=== PATIENT | female | born 1955 ===

== ENCOUNTER 2017-12-12 21:37 | Observation (INO) | payer BC ==
[2017-12-12 23:25] LABS: Troponin I Less than 0.010 ng/mL (< 0.028)
[2017-12-13 02:35] LABS: Troponin I Less than 0.010 ng/mL (< 0.028)
[2017-12-13] MEDS ORDERED: Ondansetron HCl/PF 4 MG/2 ML Vial IVP PRN (02:37)
[2017-12-13] MEDS ORDERED: Acetaminophen 325 MG TAB PO PRN (02:37)
[2017-12-13] MEDS ORDERED: Ondansetron ODT 4 MG TAB SL PRN (02:37)
[2017-12-13 03:24] VITALS: BMI 20.7
[2017-12-13 05:51] LABS: Troponin I Less than 0.010 ng/mL (< 0.028)
[2017-12-13] MEDS ORDERED: Nitroglycerin 2% Ointment 1 INCH/1 GM Packet TOP SCH (06:00)
[2017-12-13] MEDS ORDERED: Nitroglycerin 0.4 MG TAB (25 Tab Bottle) SL PRN (08:54)
[2017-12-13] MEDS ORDERED: COLESEVELAM 625 MG PO SCH (09:00)
[2017-12-13] MEDS ORDERED: Aspirin 325 mg Enteric Coated Tablet PO SCH (09:00)
[2017-12-13] MEDS ORDERED: Milk Of Magnesia 30 ML UDCUP PO PRN (09:05)
[2017-12-13] MEDS: Anastrozole 1 MG TAB PO SCH (09:49)
[2017-12-13] MEDS: Carvedilol 6.25 MG TAB PO SCH ×2 (09:49→20:15)
[2017-12-13] MEDS: Aspirin 81 mg Enteric Coated Tablet PO SCH (09:49)
[2017-12-13] MEDS: Isosorbide Mononitrate 20 MG TAB PO SCH (09:49)
[2017-12-13] MEDS: Furosemide 20 MG TAB PO SCH ×2 (09:49→20:16)
[2017-12-13] MEDS: Enoxaparin Sodium 40 MG/0.4 ML SYRINGE SC SCH (09:50)
[2017-12-13] MEDS: Prasugrel 10 MG TAB PO SCH (11:41)
--- NOTE | 2017-12-13 11:53 | HP ---
PRIMARY CARE PHYSICIAN: Claire Gutierrez M.D. PRESENTING COMPLAINT: Chest pain. HISTORY OF PRESENT ILLNESS: Ms. Alma Molina is a 62-year-old female with a past medical history of CAD, status post stent and ICD in 2006, PUD, and breast cancer status post mastectomy and lumpectomy and just finished chemotherapy in September, had radiation therapy about 2 weeks ago. She reports chest pain, which started around 5:00 p.m. yesterday, described it as crushing pressure-like pain which was retrosternal, transiently relieved by nitroglycerin spray, which he ended up using 4 times, therefore she came to the emergency room and increased by taking deep breaths. It was associated with shortness of breath and palpitations. She has no history of PND, orthopnea, lower extremity edema. She has not had previous episodes in the past. At the emergency room, she was given more nitro paste, which relieved the pain. The patient has not had any recent travel and her svp programmatic tv is Dr. Chanel. She has no urinary symptoms. There is no history of cough, fever or sputum production. Of note, pain radiated to the neck and also to her jaw. PAST MEDICAL HISTORY: As stated in the HPI. PAST SURGICAL HISTORY: Mastectomy and lumpectomy. FAMILY HISTORY: Her dad from a myocardial infarction at 56. SOCIAL HISTORY: She smokes half full pack of cigarettes per day, but denies illicit drug use or alcohol. ALLERGIES: PERCOCET, CHANTIX, AMPICILLIN. HOME MEDICATIONS: Reviewed on in the chart. REVIEW OF SYSTEMS: All systems reviewed and negative except as stated in HPI. PHYSICAL EXAMINATION: VITAL SIGNS: Blood pressure 128/83, temperature 98.9 degree Fahrenheit, heart rate 95, respiratory rate 18, oxygen saturation 92% on room air. GENERAL: Not in acute distress. She is sitting comfortably in bed and looks comfortable. HEENT: Normocephalic, atraumatic, not pale, anicteric. Moist mucous membranes , PERRLA. NECK: Supple. No JVD. Full range of movement. CARDIOVASCULAR: S1, S2 only. Regular rate and rhythm. No murmurs, rubs or gallops. RESPIRATORY: Vesicular breath sounds bilaterally. No wheezes, rales or rhonchi. ABDOMEN: Soft, nontender, nondistended. Bowel sounds normoactive. NEUROLOGIC: Alert and well oriented. No focal deficit. SKIN: Warm, dry, well-perfused. No rashes or lesions. PSYCHIATRIC: Normal mood and affect. IMAGING: EKG showed normal sinus rhythm but no signs of acute ischemia. Troponin trended and negative. ASSESSMENT: 62-year-old female with a history of coronary artery disease and status post stent, on multiple medications for chest pain, presenting with unstable angina. She has been admitted to telemetry floor for further observation until reviewed by Cardiology. PLAN: 1. Monitor on tele. 2. Sublingual nitroglycerin p.r.n. for chest pain. 3. Trend troponins. 4. Obtain Cardiology consult. 5. The patient may require any stress test due to her extensive history, we will defer to Cardiology decide on whether she needs a stress test or a stat catheterization. Pain could be related also to her recent radiation therapy. 5. We will also continue patient on her home medications of aspirin, atorvastatin, carvedilol, furosemide, amiodarone. She is also on Prasugrel. We will hold losartan for now due to her borderline blood pressures. Also, we will consider holding discharge and depending on her response. 6. Obtain a D-Dimer and proceed with CTA chest to r/o PE if Dimer positive. Deep venous thrombosis prophylaxis with subcutaneous heparin. CODE STATUS: FULL CODE. MTDD
[2017-12-13 12:10] LABS: #Basophils 0.1 thou/uL (0.0-0.2); #Lymphocytes 0.3 thou/uL (1.20-3.40); #Monocytes 1.1 thou/uL (0.11-0.59); #Neutrophils 10.8 thou/uL (1.40-6.50); %Eosinophils 0.1 % (0.0-10.0); %Lymphocytes 2.5 % (21.0-51.0); %Monocytes 8.5 % (0.0-10.0); %Neutrophils 87.8 % (42.0-75.0); Hemoglobin 13.4 g/dL (12.0-16.0); Mean Corpuscular HGB CONC 34.8 g/dL (32.0-36.0); Mean Corpuscular Hemoglobin 33.2 pg (27.0-31.0); Mean Corpuscular Volume 95.4 fL (78.0-98.0); Mean Platelet Volume 6.8 fL (7.4-10.4); Platelet Count 182 thou/uL (130-400); RBC Distribution Width 11.4 % (11.5-14.5); Red Blood Cell (RBC) Count 4.04 mill/uL (4.20-5.40); White Blood Cell (WBC) Count 12.4 thou/uL (4.8-10.8)
[2017-12-13 12:30] LABS: ALT (SGPT) 13 U/L (8-55); AST (SGOT) 14 U/L (5-34); Alkaline Phosphatase 86 U/L (40-150); Anion Gap 14 mmol/L (10-20); BUN (Urea Nitrogen) 17 mg/dL (9.8-20.1); Bilirubin, Total 0.4 mg/dL (0.2-1.2); Calc. Creatinine Clearance 51 mL/min (70-130); Calcium 9.4 mg/dL (7.8-10.44); Carbon Dioxide 23 mmol/L (23-31); Chloride 103 mmol/L (98-107); Estimated GFR-MDRD 67; Globulin 2.7 g/dL (2.4-3.5); Glucose 220 mg/dL (80-115); Potassium 3.6 mmol/L (3.5-5.1); Protein, Total 6.7 g/dL (6.0-8.3); Sodium 136 mmol/L (136-145)
[2017-12-13] MEDS: Spironolactone 25 MG TAB PO SCH (14:01)
[2017-12-13] MEDS ORDERED: ISOVUE-370 76%-LOCM 1 ML ONE (14:25)
--- NOTE | 2017-12-13 15:00 | CT ---
CT ANGIO CHEST WITH CONTRAST: Date: 12/13/17 Multiple axial tomograms obtained through chest following pulmonary angio protocol with multiplanar r econstruction and 3D postprocessing. INDICATION: Chest pain. History of breast cancer, currently on chemo. FINDINGS: Pulmonary arteries show adequate opacification. No evidence of pulmonary embolus identified. The lung marquez show chronic changes, including some stranding and atelectasis in the lung bases. The re are pleural based calcified nodules in the left lung base. These nodular densities measure up to 6 .0 mm. There is a noncalcified nodule in the left lower lobe adjacent to the fissure measuring 6-7 mm. No ev idence of focal infiltrate or effusion. Mediastinum shows no evidence of adenopathy. There are calcif ied left hilar lymph nodes consistent with prior granulomatous process. Thoracic aorta is unremarkabl e with no evidence of dissection. Images through upper abdomen are unremarkable. IMPRESSION: 1. No evidence of pulmonary embolus. 2. There are chronic lung changes, including pleural based calcified nodules in the left lung base. 3. A noncalcified nodule in the left lower lobe adjacent to the fissure. Follow-up is recommended wi th repeat CT scan in 6 months. 4. Calcified mediastinal and left hilar lymph nodes. 5. No acute lung process. POS: TYESHA
[2017-12-13] MEDS ORDERED: Albuterol Sulfate 2.5 mg/3 ml Neb NEB PRN (15:45)
[2017-12-13] MEDS: Docusate 100 MG CAP PO SCH (20:14)
[2017-12-13] MEDS ORDERED: Atorvastatin Calcium 40 MG TAB PO SCH (21:00)
[2017-12-14 04:46] LABS: #Lymphocytes 0.9 thou/uL (1.20-3.40); #Monocytes 1.1 thou/uL (0.11-0.59); #Neutrophils 7.3 thou/uL (1.40-6.50); %Basophils 0.1 % (0.0-1.0); %Eosinophils 0.5 % (0.0-10.0); %Lymphocytes 9.8 % (21.0-51.0); %Monocytes 11.6 % (0.0-10.0); Hemoglobin 12.8 g/dL (12.0-16.0); Mean Corpuscular HGB CONC 33.7 g/dL (32.0-36.0); Mean Corpuscular Hemoglobin 32.3 pg (27.0-31.0); Mean Corpuscular Volume 95.8 fL (78.0-98.0); Mean Platelet Volume 6.8 fL (7.4-10.4); Platelet Count 170 thou/uL (130-400); RBC Distribution Width 11.5 % (11.5-14.5); Red Blood Cell (RBC) Count 3.96 mill/uL (4.20-5.40); White Blood Cell (WBC) Count 9.4 thou/uL (4.8-10.8)
[2017-12-14 05:00] LABS: Anion Gap 12 mmol/L (10-20); BUN (Urea Nitrogen) 16 mg/dL (9.8-20.1); Calc. Creatinine Clearance 59 mL/min (70-130); Calcium 9.3 mg/dL (7.8-10.44); Carbon Dioxide 24 mmol/L (23-31); Chloride 106 mmol/L (98-107); Estimated GFR-MDRD 80; Glucose 116 mg/dL (80-115); Potassium 3.8 mmol/L (3.5-5.1); Sodium 138 mmol/L (136-145)
[2017-12-14] MEDS ORDERED: Acetaminophen 325 MG TAB PO PRN (08:42)
[2017-12-14] MEDS: Aspirin 81 mg Enteric Coated Tablet PO SCH (08:57)
[2017-12-14] MEDS: Docusate 100 MG CAP PO SCH (08:57)
[2017-12-14] MEDS: Furosemide 20 MG TAB PO SCH ×2 (08:57→16:49)
[2017-12-14] MEDS: Prasugrel 10 MG TAB PO SCH (08:57)
[2017-12-14] MEDS: Anastrozole 1 MG TAB PO SCH (08:58)
[2017-12-14] MEDS: Enoxaparin Sodium 40 MG/0.4 ML SYRINGE SC SCH (08:58)
[2017-12-14] MEDS ORDERED: Calcium Citrate 950 MG TAB PO SCH (09:00)
[2017-12-14] MEDS ORDERED: Fish Oil 1,000 MG CAP PO SCH (09:00)
[2017-12-14] MEDS ORDERED: Cholecalciferol (Vitamin D3) 400 UNITS TAB PO SCH (09:00)
[2017-12-14] MEDS ORDERED: BIOTIN PO SCH (09:00)
[2017-12-14] MEDS: Carvedilol 6.25 MG TAB PO SCH (10:43)
[2017-12-14] MEDS: Isosorbide Mononitrate 20 MG TAB PO SCH (10:43)
[2017-12-14] MEDS ORDERED: ADENOSINE 60 MG/20 ML VIAL ONE (14:01)
--- NOTE | 2017-12-14 16:36 | CON ---
DATE OF CONSULTATION: 12/14/2017 HISTORY: Alma Molina is a 62-year-old white female, who has had stent placement in the right coronary artery and ultimately a stent placed in the mid left anterior descending. In 2007, she had an anterior myocardial infarction. Her Plavix had been discontinued at that time due to gastrointestinal bleeding. On ultrasound there was found to be no evidence of restenosis and it was felt that this probably was due to coronary artery spasm with the distal vessel looking small. In 2009, she again underwent catheterization with no significant obstruction. Again in 11/2011, she underwent cardiac catheterization. There was 20% to 25% right coronary artery lesion. The mid LAD stent had a 30% in-stent restenosis and FFR of 0.92. Ejection fraction at that time was 35% with distal anterior and apical akinesis. She has continued to be followed in the office most recently seen on 11/2017. She had no chest discomfort. She has been undergoing chemotherapy and radiation therapy for breast CA. In October when she did stop diltiazem, she seemed to have recurrence of chest pain and this was resumed. She also has had placement of a biventricular ICD. On 12/12, she began to have chest pressure approximately 5:00 p.m. This continued unrelenting. She took multiple nitroglycerins at home without improvement and the pain was definitely pleuritic in nature which is different than her usual heart pain. She went to the emergency room in [place] and then was transferred here. She received multiple doses of IV morphine and fentanyl and after approximately 12 hours the pain resolved. During the time course, she did not notice any positional effects on her chest pain. However, it was definitely pleuritic in nature. Despite 12 hours of continual chest pain, her cardiac enzymes were normal. PAST MEDICAL HISTORY: Coronary artery disease as noted above, ischemic cardiomyopathy with ICD placement, hypertension, hypercholesterolemia. MEDICATIONS: At home include Arimidex 1 mg daily, aspirin 81 daily, atorvastatin 40 q.p.m., Biotin 1 capsule daily, calcium citrate 1000 mg daily, carvedilol 6.25 b.i.d., diltiazem 120 q.p.m., vitamin D3, Welchol two tablets b.i.d., fish oil 1000 mg daily, furosemide 20 b.i.d., isosorbide mononitrate 30 daily, Claritin-D 5 mg p.r.n., losartan 25 q.p.m., pantoprazole 40 daily, Effient 5 mg daily, Ranexa 500 mg alternating with one tablet with one half every other day, spironolactone 25 mg daily, vitamin B complex. ALLERGIES: CHANTIX, OXYCODONE and AMPICILLIN. OPERATIONS: ICD placement, stent placement, mastectomy, and lumpectomy. SOCIAL HISTORY: Continues to smoke one half pack per day. She does not drink. FAMILY HISTORY: Father had a myocardial infarction at age 56 and with that. PHYSICAL EXAMINATION: VITAL SIGNS: Blood pressure 101/51, pulse of 89. HEENT: PERRL. NECK: Supple. CHEST: Clear. CARDIAC: S1 and S2 normal, without any S3, S4 or murmurs. There is no rub. ABDOMEN: Normal bowel sounds, without tenderness, organomegaly. EXTREMITIES: Revealed no clubbing, cyanosis or edema. NEUROLOGIC: Grossly intact. SKIN: Warm and dry. LABORATORY DATA: EKG revealed normal sinus rhythm with low voltage, evidence for inferior and anteroseptal myocardial infarction. Hemoglobin 12.8, hematocrit 37.9, white count 9400, platelets 170,000. D-dimer 0.69. Sodium 138 , potassium 3.8, chloride 106, carbon dioxide 24, BUN 16, creatinine 0.73. Cardiac enzymes are negative x3 with troponin I of less than 0.010. IMPRESSION: 1. Atypical, probably noncardiac chest pain. She had 12 hours of continual pleuritic pain, but normal cardiac enzymes. She did not have any positional changes in her pain. This certainly may be related to pneumonitis from radiation therapy 2 to 3 weeks ago. 2. History of coronary artery disease and probable coronary artery spasm. She has had stent placement in the right coronary artery and in the LAD and also apparently had a myocardial infarction, felt to be due to coronary artery spasm. When she gets off the Cardizem, she appears to have more symptoms. 3. Left ventricular dysfunction, ischemic cardiomyopathy. 4. History of biventricular ICD placement. 5. Hyperlipidemia. 6. Hypertension. 7. The patient continues to smoke. 8. History of breast CA, currently undergoing radiation and chemotherapy. PLAN: Her pain does not appear to be cardiac in nature. She will undergo adenosine Cardiolite testing for further evaluation. This probably will be abnormal with a fixed anterior and apical defect from her previous infarction. Also, echocardiogram will be performed and her ICD will be interrogated. DENIZ
[2017-12-14] MEDS: Spironolactone 25 MG TAB PO SCH (16:49)
--- NOTE | 2017-12-14 16:50 | NM ---
MYOCARDIAL PERFUSION SCAN: INDICATIONS: Chest pain. TECHNIQUE: The patient was given 9 millicuries of technetium sestamibi for rest imaging and 28 millicuries for s tress imaging. The left ventricle is imaged with SPECT imaging with CT attenuation. FINDINGS: Large fixed defect involving the apex, which extends into both the anterior and inferior jim. No e vidence of reversible ischemia. Wall motion shows diffuse hypokinesis. The ejection fraction is recorded at 53%. IMPRESSION: Large fixed defect involving the apex, including the anterior apical and the inferior apical regions. No definite evidence of reversible ischemia. POS: TYESHA
--- NOTE | 2017-12-14 17:06 | PDOC.PN ---
- Subjective Encounter Start Date: 12/14/17 Encounter Start Time: 17:04 Ms. Molina was seen today in follow-up of chest pain. She says she feels fine today, and has not had any further pain. - Objective Resuscitation Status: Resuscitation Status FULL:Full Resuscitation MAR Reviewed: Yes Vital Signs & Weight: Vital Signs (12 hours) Temp Pulse Resp BP Pulse Ox 12/14/17 08:57 98.6 F 89 16 12/14/17 07:36 98.6 F 89 16 101/51 L 94 L Weight Weight 106 lb 6.4 oz I&O: 12/13/17 12/14/17 12/15/17 06:59 06:59 06:59 Intake Total 480 Balance 480 Result Diagrams: 12/14/17 04:17 12/14/17 04:17 Phys Exam - Physical Examination HEENT: PERRLA Respiratory: no wheezing, no rales, no rhonchi, clear to auscultation bilateral Cardiovascular: RRR, no significant murmur, no rub Gastrointestinal: soft, non-tender, positive bowel sounds Musculoskeletal: no edema Dx/Plan (1) Chest pain Code(s): R07.9 - CHEST PAIN, UNSPECIFIED Status: Acute (2) Coronary artery disease Code(s): I25.10 - ATHSCL HEART DISEASE OF [place] CORONARY ARTERY W/O ANG PCTRS Status: Chronic (3) Breast cancer Status: Chronic (4) Chronic systolic heart failure Code(s): I50.22 - CHRONIC SYSTOLIC (CONGESTIVE) HEART FAILURE Status: Chronic - Plan * Chest pain- stress test results noted, and essentially unchanged from 2012 * stable for discharge home..
[2017-12-14 17:14] VITALS: BP 110/49; TEMP 98.7
--- NOTE | 2017-12-15 02:30 | DIS ---
PRIMARY CARE PHYSICIAN: Claire Gutierrez M.D. DATE OF ADMISSION: 12/13/2017 DATE OF DISCHARGE: 12/14/2017 DISCHARGE DISPOSITION: Home. PRIMARY DISCHARGE DIAGNOSES: 1. Chest pain. 2. History of coronary artery disease. 3. Breast cancer. 4. Chronic systolic heart failure. DISCHARGE MEDICATIONS: Include vitamin B complex once daily, spironolactone 25 mg daily, Ranexa 500 mg Friday, Friday, and Friday, and 250 mg on the other days, Effient 5 mg daily, pantoprazole 40 m g daily, losartan 25 mg daily, Claritin-D once daily, isosorbide mononitrate extended release 30 mg d aily, furosemide 20 mg twice a day, fish oil 1000 mg daily, diltiazem 120 mg q.p.m., Welchol 625 mg 2 tablets twice a day, vitamin D3 of 400 mg daily, carvedilol 6.25 mg twice a day, calcium citrate 100 0 mg daily, Biotin 1 mg daily, Lipitor 40 mg daily, aspirin 81 mg daily, Arimidex 1 mg daily. PROCEDURES DONE DURING ADMISSION: The patient had a CT angiogram of the chest which was negative for pulmonary embolism, but it did show a pleural based nodule in the left lung base and a noncalcified nodule in the adjacent left lung fissure. The patient had a nuclear stress test which showed a large fixed defect in the anterior inferior wall, but no evidence of any reversible ischemia. Echocardiog kimmie demonstrated an ejection fraction of 35-40%. There was akinetic motion of the apical wall of the left ventricle as well as an apical anterior wall of the left ventricle and the lateral wall of the left ventricle, defibrillator wire was present in the right ventricle. CODE STATUS: FULL CODE. ALLERGIES: AMPICILLIN, OXYCODONE and VARENICLINE or CHANTIX. HOSPITAL COURSE: Ms. Molina is a pleasant 62-year-old female that presented to the emergency room with complaints of chest pain. Given her extensive cardiac history, she was placed in observation an d ruled out. Her endband cutter hand was consulted and he recommended that she undergo a nuclear stress kimmy t which was done, the results of which were essentially unchanged. Echocardiogram also was performed and unchanged. She had a CT angiogram on admission, which was negative for pulmonary embolism. It did show incidentally a pleural based nodule in the left lung base. I discussed the findings with th e patient and she plans to follow this up as an outpatient. Her symptoms have completely resolved an d she will be discharged home with close outpatient followup.
== END 2017-12-14 18:38 | disposition home or self-care (01) ==
LOC: ERS 21:37 → 2SW 12-13 02:13
PROVIDERS: ADMIT Internal Medicine; ATTEND Internal Medicine
DX: R07.2 Precordial pain (principal); I25.10 Atherosclerotic heart disease of native coronary artery without angina pectoris; I11.0 Hypertensive heart disease with heart failure; E78.00 Pure hypercholesterolemia, unspecified; I50.22 Chronic systolic (congestive) heart failure; F17.210 Nicotine dependence, cigarettes, uncomplicated; I25.5 Ischemic cardiomyopathy; Z79.52 Long term (current) use of systemic steroids; Z79.82 Long term (current) use of aspirin; Z79.899 Other long term (current) drug therapy; Z88.1 Allergy status to other antibiotic agents; Z88.5 Allergy status to narcotic agent
CPT/HCPCS: 36415; 71275; 78452; 80048; 80053; 84484; 85025; 85379; 93005; 93017; 93306; 96372; 96374; A9500; G0378; J0153; J1650; J2270

== ENCOUNTER 2019-10-30 22:47 | Emergency (ER) | payer MEDICARE ==
[2019-10-30] MEDS ORDERED: diphenhydrAMINE 50 MG/ML VIAL ONE (23:29)
[2019-10-30] MEDS ORDERED: methylPREDNISolone Sod Succ/PF 125 MG/2 ML VIAL ONE (23:29)
[2019-10-30] MEDS ORDERED: Magnesium 2 GM/50 ML BAG (IN WATER) ONE (23:29)
[2019-10-30] MEDS ORDERED: Metoclopramide HCl 10 MG/2 ML VIAL ONE (23:29)
[2019-10-30] MEDS ORDERED: Ketorolac Tromethamine 30 MG/ML VIAL ONE (23:29)
== END 2019-10-31 00:27 | disposition home or self-care (01) ==
LOC: ERS 22:47
DX: R51 Headache (principal); R11.0 Nausea; E78.5 Hyperlipidemia, unspecified; I10 Essential (primary) hypertension; I34.0 Nonrheumatic mitral (valve) insufficiency; I07.1 Rheumatic tricuspid insufficiency; I25.10 Atherosclerotic heart disease of native coronary artery without angina pectoris; C50.919 Malignant neoplasm of unspecified site of unspecified female breast; K21.9 Gastro-esophageal reflux disease without esophagitis; M19.90 Unspecified osteoarthritis, unspecified site; D64.9 Anemia, unspecified; N73.9 Female pelvic inflammatory disease, unspecified; M81.0 Age-related osteoporosis without current pathological fracture
CPT/HCPCS: 96365; 96375; J1200; J1885; J2765; J2930; J3475